=== PATIENT | female | born 1980 | race Caucasian/White ===

== ENCOUNTER 2019-02-20 19:15 | Observation (INO) | payer OTHER ==
[2019-02-20] MEDS ORDERED: LR 1,000 ML IV ONE ×2 (19:30→20:31)
[2019-02-20 20:15] LABS: PLATELET COUNT 228 10^3/uL (150-400)
[2019-02-20] MEDS ORDERED: ZOLPIDEM TARTRATE 5 MG TAB PO PRN (22:20)
[2019-02-20] MEDS ORDERED: ONDANSETRON DISINTEGRATING 4 MG TAB PO PRN (22:20)
--- NOTE | 2019-02-21 00:55 | GHP ---
[f rep st] PREOP HISTORY AND PHYSICAL DATE OF ADMISSION: 02/20/2019 ADMISSION DIAGNOSIS: Intrauterine at 38 and 5/7 weeks gestation, false labor, history of g enital herpes. HISTORY OF PRESENT ILLNESS: The patient is a 38-year-old, 1, para 0, who is 38 and 5/7 weeks gestation. She has a history of type 2 genital herpes and is scheduled for a primary elective sharon rakan section on Wednesday due to the history and desire to avoid any potential risk of baby contractin g herpes. Patient has a history of an outbreak a month ago and she has been treated on prop hylactic Valtrex since then. The patient has questionable prodromal symptoms today and began having contractions and came in for evaluation. A cervical exam on arrival, her cervix was long and closed. She was re-examined several hours later and no change in her cervix was noted. She was given IV fl uids and had contractions which palpated mildly. I did extensive pelvic exams of the area that patie nt normally has lesions and no abnormal tissue or lesions were noted. Management options were review ed with the patient. Including continued in-house observation and morphine sleep, and if she progres sed into labor, then proceeding immediately with section versus going home. The patient and her considered all the options and decided that they wanted to go stay in a hotel nearby and have a script for Jong. The patient was discharged to home with labor precautions and kick counts. The patient had a category 1 tracing. Infant in the vertex presentation. Patient was having regular contractions on the monitor, which were mild. status was reassuring. Labor pre cautions were reviewed. If the patient returns in labor, we will proceed with a section. /[id number]/MODL
== END 2019-02-20 22:45 | disposition home or self-care (01) ==
LOC: FLD 19:15
PROVIDERS: ADMIT Obstetrics & Gynecology; ATTEND Obstetrics & Gynecology
DX: O47.1 False labor at or after 37 completed weeks of gestation (principal); O98.313 Other infections with a predominantly sexual mode of transmission complicating pregnancy, third trimester; A60.09 Herpesviral infection of other urogenital tract; Z3A.38 38 weeks gestation of pregnancy
CPT/HCPCS: 59025; G0378

== ENCOUNTER 2019-02-22 05:36 | Inpatient (IN) | payer OTHER ==
--- NOTE | 2019-02-16 19:54 | GHP ---
[f rep st] HISTORY AND PHYSICAL DATE OF ADMISSION: 02/22/2019 DATE OF PROCEDURE: 02/22/2019. ADMITTING DIAGNOSES: 1. Intrauterine at 39 weeks. 2. Elective primary . HISTORY OF PRESENT ILLNESS: The patient is a 37-year-old, 1, para 0, at 39 weeks with an estimated due date 03/01/2019 by last menstrual period, 05/25/2018, and consistent with ultrasound at 8 weeks. The patient presents to Labor and Delivery for an elective primary secondary to concern about cephalopelvic disproportion. She states that her mother had cephalopelvic disproportion and needed a . The patient did not disclose early in that she has a history of HSV-2 and genital lesions and her is not aware of this; she is also concerned that there will be issues with the baby coming through the canal, even though she is on prophylactic Valtrex , and desires an elective at this time. The patient states there is good movement. The patient denies any leakage of fluid, vaginal bleeding or any contractions at this time. The patient has good care at [facility] and was a transfer of care at 14 weeks. is complicated by advanced maternal age with negative NIPT and a normal level II ultrasound at 20 weeks with an estimated weight in 14th percentile. Most recent growth at 36 weeks revealed an estimated weight 49% with normal ATA at 13 cm. The patient failed 1-hour Glucola, but passed 3-hour Glucola. The patient received Tdap. GBS culture is negative. PAST OB HISTORY: The patient is a primipara. 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 Cycles are monthly and she bleeds for 2 days. She had a Mirena IUD, which was removed March 2018. LMP was 05/25/2018. Positive test 06/23/2018. The patient does not have a history of abnormal Pap smears. She has a history of HSV-2 but denies exposure to any other STDs. CURRENT MEDICATIONS: Include vitamins, folic acid, Valtrex. ALLERGIES: No known drug allergies. PAST MEDICAL HISTORY: Advanced maternal age. 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 PAST SURGICAL HISTORY: Egg retrieval in 2011; wisdom teeth extraction; and cystectomy on forehead. FAMILY HISTORY: Maternal grandmother/maternal aunt, obesity. Mother, diverticulitis. SOCIAL HISTORY: Patient is and lives with her . 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 The patient denies any current alcohol use, but admits to marijuana use bimonthly and discontinued June 2018, and denies any tobacco use. REVIEW OF SYSTEMS: 10-point review of systems is negative. Pertinent positives noted in HPI. LABS: First trimester H and H, 14.6 and 45.1, platelets 257. Blood type B positive. Antibody negative. RPR reactive. Rubella immune. Hepatitis B surface antigen negative. HIV negative. Trio screen and standard panel negative. Urine drug screen, UA and urine culture all negative. Gonorrhea/ chlamydia cultures negative. Pap smear negative per patient. Single AFP negative. Innatal screen negative. Third trimester H and H, 12.4 and 37.2. One-hour Glucola 135; 3-hour Glucola 66, 135, 144, 140. GBS culture is negative. Varicella immune. PHYSICAL EXAMINATION: VITAL SIGNS: On admission, vital signs are stable. Patient is afebrile. GENERAL: Well-nourished well-developed female. Alert and oriented x3, in no apparent distress. SKIN: Warm, dry without rashes. NEURO: Grossly intact. CARDIOVASCULAR: Regular rate and rhythm. LUNGS: Clear to auscultation bilaterally. ABDOMEN: Gravid, soft, nontender. PELVIC: Exam is deferred. EXTREMITIES: Normal to inspection without calf tenderness or edema. ASSESSMENT/PLAN: Patient is a 37-year-old 1, para 0, at 39 weeks who presents for an elective primary secondary to concern for cephalopelvic disproportion, and HSV-2 and transmission to baby. 1. Admit to Labor and Delivery. 2. Discussed risks of the procedure, including but not limited to bleeding, infection, and damage to surrounding organs. The patient understands all risks at this time and wants to proceed with elective primary . 3. Surgical consents were obtained and the patient was properly consented. 4. Antibiotics senior environmental scientist to operating room. 5. Sequential compression devices for deep venous thrombosis prophylaxis. 6. Patient is to bring in her cord blood banking kit. /[id number]/MODL MTDD
[2019-02-22] MEDS ORDERED: CITRIC ACID/SODIUM CITRATE 30 ML UDCUP PO ONE (05:44)
[2019-02-22] MEDS ORDERED: LR 1,000 ML IV SCH (05:44)
[2019-02-22] MEDS ORDERED: ceFAZolin 2 GM/DEXTROSE 100 ML IV ONE (05:44)
[2019-02-22] MEDS ORDERED: LR 500 ML IV ONE (05:44)
--- NOTE | 2019-02-22 07:05 | PREANESOB ---
Obstetric Pre-Anesthesia Info - General Info Proposed Procedure: primary c/s for possible herpes outbreak : 1 Para: 0 NANCY: 02/23/19 Gestational Age: 39 week(s) and 6 day(s) - Info Status: Full Term Monitors: External FHR Pattern: Reassuring - Labor Status PIH: No Magnesium Sulfate in Use: No Section History: Primary Indications for Current Section: Herpes Labor Epidural: No Anesthesia Allergies/Adverse Reactions: Allergy/AdvReac Type Severity Reaction Status Date / Time No Known Allergies Allergy Unverified 02/16/19 18:56 Home Medications: Medication Instructions Recorded Fish Oil 1,000 mg Softgel 1 cap PO DAILY 02/22/19 1 tab PO DAILY 02/22/19 Probiotic 1 cap PO DAILY 02/22/19 Valtrex (*) 1 tab PO DAILY 02/22/19 Vitamin D3 1 cap PO DAILY 02/22/19 Visit Medications: Generic Name Dose Route Start Last Admin Trade Name Freq PRN Reason Stop Dose Admin Lactated Ringer's 1,000 mls @ 125 mls/hr 02/22/19 05:44 02/22/19 06:34 Lr IV 02/23/19 05:43 1,000 mls CONT HAYDEE Administration Discontinued Medications Generic Name Dose Route Start Last Admin Trade Name Freq PRN Reason Stop Dose Admin Citric Acid/Sodium Citrate 30 ml 02/22/19 05:44 Bicitra PO 02/22/19 05:45 ONCALL ONE Cefazolin Sodium/Dextrose 100 mls @ 200 mls/hr 02/22/19 05:44 Ancef IV 02/22/19 06:13 ONCALL ONE Protocol Lactated Ringer's 500 mls @ 0 mls/hr 02/22/19 05:44 Lr IV 02/22/19 05:45 ONCE ONE As Directed - Vital Signs Latest Vital Signs (Nursing): Temp Pulse Resp BP Pulse Ox 36.8 C 98 22 H 115/84 H 95 02/22/19 06:11 02/22/19 06:11 02/22/19 06:11 02/22/19 06:11 02/22/19 06:11 Height/Weight (Nursing): Height 157.48 cm Weight 74.389 kg - Focused Exam Neck exam: FROM Mallampati Score: Class 2 Mouth exam: normal dental/mouth exam Pulmonary: no respiratory distress, clear to auscultation Cardiovascular: regular rate and rhythym, no murmur, rub, or gallop - Plan Consent Signed and on Chart: Yes Patient/Guardian Understands and Agrees to Plan: Yes
[2019-02-22] MEDS ORDERED: BUPIVACAINE/DEXTROSE 7.5MG/ML 2 ML SPINAL AMP SP ONE (07:09)
[2019-02-22] MEDS ORDERED: ONDANSETRON 4 MG/2 ML VIAL ONE (07:09)
[2019-02-22] MEDS ORDERED: morphINE PF 5 MG/10 ML INJ ONE (07:09)
[2019-02-22 07:10] LABS: PLATELET COUNT 244 10^3/uL (150-400)
--- NOTE | 2019-02-22 07:18 | PDHPUP ---
History & Physical Update H&P update statement: This history and physical update is based on an assessment of the patient which was completed after admission or registration (within 24 hours), but prior to the surgery/procedure. Pt desires elective c/s at this time to avoid any potential risk of herpes. Pt was seen on L&D 2 days ago in false labor and noticed questionable prodromal symptoms. Pt was taking Valtrex. H&P update: H&P reviewed & patient examined, no change in patient's condition since H&P completed
[2019-02-22] MEDS ORDERED: OXYTOCIN 100 UNITS/10 ML VIAL ONE (07:46)
[2019-02-22] MEDS ORDERED: PHENYLEPHRINE HCL 100 MCG/ML SYR IVP PRN (08:05)
[2019-02-22] MEDS ORDERED: fentaNYL 100 MCG/2 ML INJ IVP PRN (08:05)
[2019-02-22] MEDS ORDERED: HYDROCODONE/APAP 5/325 TAB PO PRN (08:05)
[2019-02-22] MEDS ORDERED: OXYCODONE/APAP 5/325 TAB PO PRN (08:05)
--- NOTE | 2019-02-22 08:06 | POSTANESTH ---
Post Anesthetic Evaluation Cardiovascular Status: Normal, Stable Respiratory Status: Normal, Stable Level of Consciousness/Mental Status: Can Participate in Eval Pain Control: Adequate, Prn Tx Ordered Nausea/Vomiting Control: Adequate, Prn Tx Ordered Complications Possibly Related to Anesthesia: None Noted
[2019-02-22] MEDS ORDERED: PROMETHAZINE HCL 25 MG/ML INJ IVP PRN (08:55)
[2019-02-22] MEDS ORDERED: POLYETHYLENE GLYCOL 3350 17 GM PKT PO PRN (08:55)
[2019-02-22] MEDS ORDERED: MAGNESIUM HYDROXIDE 30 ML UDCUP PO PRN (08:55)
[2019-02-22] MEDS ORDERED: LACTULOSE 20 GM/30 ML UDCUP PO PRN (08:55)
[2019-02-22] MEDS ORDERED: SIMETHICONE 80 MG TAB CHEW PO PRN (08:55)
[2019-02-22] MEDS ORDERED: BISACODYL 10 MG SUPP PR PRN (08:55)
[2019-02-22] MEDS ORDERED: oxyCODONE IR 5 MG TAB PO PRN (08:57)
--- NOTE | 2019-02-22 08:59 | OBDEL ---
Info Type: Primary Presentation at Delivery: Vertex (Direct OA) L&D Analgesia/Anesthesia Type: Spinal GBS+: No Intrapartum Medications: Generic Name Dose Route Start Last Admin Trade Name Freq PRN Reason Stop Dose Admin Lactated Ringer's 1,000 mls @ 125 mls/hr 02/22/19 05:44 02/22/19 06:34 Lr IV 02/23/19 05:43 1,000 mls CONT HAYDEE Administration Discontinued Medications Generic Name Dose Route Start Last Admin Trade Name Freq PRN Reason Stop Dose Admin Citric Acid/Sodium Citrate 30 ml 02/22/19 05:44 02/22/19 07:04 Bicitra PO 02/22/19 05:45 30 ml ONCALL ONE Administration Cefazolin Sodium/Dextrose 100 mls @ 200 mls/hr 02/22/19 05:44 02/22/19 07:05 Ancef IV 02/22/19 06:13 100 mls ONCALL ONE Administration Protocol - Care Provider Brick Machine Operator/SERVER SECURITY ADMINISTRATOR: Ramona Rizzo Indications for Delivery: Elective (h/o HSV-2, concern for transmission of herpes; concern for CPD) Operative Report - Delivery Pre-op Diagnoses: IUP @ 39 weeks for elective c/s secondary to concern for transmission of herpes; pt with h/o HSV2 with outbreak at 36 weeks on Valtrex with prodromal symptoms 48 hours ago; concern for CPD Post-op Diagnoses: IUP @ 39 weeks for elective c/s secondary to concern for transmission of herpes; pt with h/o HSV2 with outbreak at 36 weeks on Valtrex with prodromal symptoms 48 hours ago; concern for CPD; narrow pubic arch noted when delivering head History of Prior Section: No Number of Prior Sections: 0 Nulliparous Prior to Delivery: Yes Indications for Current Section: Elective/Repeat, Herpes (concern for transmission of herpes; pt with prodromal symptoms) Procedure: Scheduled, Low Transverse Surgeon: Mary Anne Wood Hydraulic Miner: Ericka Jain Anesthesiologist: Shanti Merino Complications: None Findings: A viable female born in direct OA position at 0756 with 9 and 9 Apgars weighing 7lb 6oz. Some difficulty in delivering head secondary to narrow pubic arch. Delayed cord clamping x 30 sec. Cord clamped x 2, cut and to waiting SERVER SECURITY ADMINISTRATOR. Cord blood collection was completed per instructions and a segment of cord was collected. Cord bloods then obtained. Placenta delivered spontaneously intact with 3-vc. Grossly normal appearing uterus, tubes and ovaries. Pt sathya well. No complications. Specimen(s)/Path: Other (Specify) (none) IV Fluid (ml): 1,200 EBL: 600cc UO: 100 cc clear fluid at end [place] Data NANCY: 03/01/19 Gestational Age: 39 week(s) and 0 day(s) Morales Delivery Date: 02/22/19 Delivery Time: 07:56 Sex of : Female [place] Weight (gm): 3336 g Score (1 Min): 9 Score (5 Min): 9 ICD10 Worksheet Patient Problems: Problems Problem Status Onset CPD (cephalo-pelvic disproportion) Acute Delivery by elective section Acute History of herpes simplex type 2 infection Acute - ICD10 Problem Qualifiers (1) Delivery by elective section (2) History of herpes simplex type 2 infection (3) CPD (cephalo-pelvic disproportion) Qualifiers: Fetus number: single or unspecified fetus
[2019-02-22] MEDS: KETOROLAC 30 MG/1 ML SDV IVP SCH ×2 (12:22→18:26)
[2019-02-22] MEDS: ACETAMINOPHEN 325 MG TAB PO SCH ×2 (13:36→20:05)
[2019-02-22] MEDS: IBUPROFEN 600 MG TAB PO SCH ×2 (14:54→16:51)
[2019-02-22] MEDS: SENNOSIDES/DOCUSATE SODIUM TAB PO SCH ×2 (14:57→20:06)
[2019-02-22] MEDS ORDERED: diphenhydrAMINE 25 MG CAP PO PRN (16:28)
--- NOTE | 2019-02-22 18:26 | OBPP ---
Progress Note Assessment/Plan: Assessment: 38 y/o G1 now P1 s/p elective PCS at 39 weeks POD # 0 - pt is stable Plan: Continue routine post-op care Pain well controlled, cont meds as ordered Encourage IS Good UO, amos in place Cont SCDs while in bed HCT pending in am 02/23 support prn 02/22/19 18:26 Subjective/ Course: 02/22/19 18:27 Pt seen and examined. Doing well with no complaints. Pain is well controlled at this time. Pt has been in a chair for 1 hour. Brad regular diet, amos in place, no flatus yet. Minimal bleeding noted. Denies any f/c/n/v/CP or SOB. BF going well so far. NO calf tenderness. Objective: 02/22/19 06:25 Patient ABO/Rh B POSITIVE 02/22/19 06:25 Temp Pulse Resp BP Pulse Ox 36.2 C 99 16 106/65 93 02/22/19 14:00 02/22/19 14:00 02/22/19 16:00 02/22/19 14:00 02/22/19 16:00 Uterine Position/Fundal Height: Umbilicus -1 Uterine Tone: Firm Physical Exam - Physical Exam General Appearance: WD/WN, alert, no apparent distress Respiratory: lungs clear, normal breath sounds Cardiac/Chest: regular rate, rhythm Abdomen: normal bowel sounds, non-tender, soft, incision (C/D/I with dressing in place), dressing (C/D/I with no shadowing) Extremities: non-tender, normal inspection (with SCDs) Skin: normal color, warm/dry Neuro/Psych: alert, normal mood/affect, oriented x 3
[2019-02-23] MEDS: KETOROLAC 30 MG/1 ML SDV IVP SCH ×2 (00:31→06:31)
[2019-02-23] MEDS: ACETAMINOPHEN 325 MG TAB PO SCH ×5 (03:46→22:53)
[2019-02-23] MEDS: IBUPROFEN 600 MG TAB PO SCH ×5 (04:14→20:49)
[2019-02-23] MEDS: SENNOSIDES/DOCUSATE SODIUM TAB PO SCH ×2 (10:30→19:26)
--- NOTE | 2019-02-23 11:31 | OBPP ---
Progress Note Assessment/Plan: Assessment: POD1 s/p elective PLTCS for HSV2 with questionable outbreak. - Routine cares. - Would like to stay until Wednesday. - Rh pos, Rubella immune. Selected Entries 02/22/19 05:47 Rubella Immune Yes Laboratory Tests 02/22/19 06:25 Patient ABO/Rh B POSITIVE Subjective/ Course: Lindsay is doing great - no new issues overnight. Up and ambulating, took bandage off this AM. Tolerating diet. Says her pain is a zero - no narcotics. Objective: 02/23/19 03:50 Patient ABO/Rh B POSITIVE 02/22/19 06:25 Temp Pulse Resp BP Pulse Ox 36.3 C 69 16 104/69 94 02/23/19 04:00 02/23/19 04:00 02/23/19 04:00 02/23/19 04:00 02/23/19 04:00 Uterine Position/Fundal Height: At Umbilicus Uterine Tone: Firm Physical Exam - Physical Exam Abdomen: incision (CDI, no s/sx of infx)
--- NOTE | 2019-02-23 11:56 | PDPAINCON ---
Pain Management Consultation Patient referred by : [place] - Subjective Pain is: under control Side effects include: No nausea/vomiting Activity: able to ambulate - Objective Technique: spinal opioid Sensory and motor exam: consistent with block Vital signs: stable - Assessment/Plan Assessment/Plan: pain well-controlled, continue current mgmt (POD 1 s/p C/S with IT morphine. No complaints, doing well.)
[2019-02-24] MEDS: IBUPROFEN 600 MG TAB PO SCH ×6 (01:40→19:57)
[2019-02-24] MEDS: ACETAMINOPHEN 325 MG TAB PO SCH ×3 (06:13→18:22)
[2019-02-24] MEDS: SENNOSIDES/DOCUSATE SODIUM TAB PO SCH ×2 (07:34→19:58)
[2019-02-24] MEDS: oxyCODONE IR 5 MG TAB PO PRN (19:58)
--- NOTE | 2019-02-24 21:02 | OBPP ---
Progress Note Assessment/Plan: Assessment: LATE NOTE - PT SEEN APPROX 16:15 POD 2 s/p primary c/s HSV II Plan: routine care 02/24/19 20:58 Subjective/ Course: Lindsay is doing great - no new issues overnight. Up and ambulating, took bandage off this AM. Tolerating diet. Says her pain is a zero - no narcotics. 02/24/19 21:00 Pt has had good day. Baby is latching well - sore nipples but using APNO cream. bld is very light. urinating fine. Getting up and walking - pain controlled with ibu/tyl mainly but just took Oxy approx 1-2 hrs ago. Objective: 02/23/19 03:50 Patient ABO/Rh B POSITIVE 02/22/19 06:25 Temp Pulse Resp BP Pulse Ox 36.1 C 72 16 105/71 94 02/24/19 19:41 02/24/19 19:41 02/24/19 19:41 02/24/19 19:41 02/24/19 19:41 Uterine Position/Fundal Height: Umbilicus -1 Uterine Tone: Firm Physical Exam - Physical Exam Abdomen: non-tender (approp post op tenderness), soft, incision (CDI) Extremities: non-tender, pedal edema (minimal) Skin: normal color, warm/dry Neuro/Psych: alert, normal mood/affect
[2019-02-25] MEDS: oxyCODONE IR 5 MG TAB PO PRN (00:35)
[2019-02-25] MEDS: ACETAMINOPHEN 325 MG TAB PO SCH ×4 (00:36→21:04)
[2019-02-25] MEDS: IBUPROFEN 600 MG TAB PO SCH ×4 (04:40→23:10)
[2019-02-25] MEDS: SENNOSIDES/DOCUSATE SODIUM TAB PO SCH ×2 (10:11→23:20)
--- NOTE | 2019-02-25 11:17 | OBPP ---
Progress Note Assessment/Plan: Assessment: 38 y/o POD #3 s/p LTCS doing well. Plan: I will write Rx for Oxycodone and Ibuprofen today to facilitate d/c tomorrow. support and routine POC. Pt has post op instructions and appointments set up. 02/25/19 11:16 Subjective/ Course: Lindsay is doing great - no new issues overnight. Up and ambulating, took bandage off this AM. Tolerating diet. Says her pain is a zero - no narcotics. 02/24/19 21:00 Pt has had good day. Baby is latching well - sore nipples but using APNO cream. bld is very light. urinating fine. Getting up and walking - pain controlled with ibu/tyl mainly but just took Oxy approx 1-2 hrs ago. 02/25/19 11:13 Pt is doing well today. She has good pain controll with Ibuprofen, Tylenol and Oxycodone. She is ambulating and voiding and had BM yesterday. Breast feeding is going better and her nipples are better with APNO cream. They wish to stay today but be discharged early tomorrow am. Objective: 02/23/19 03:50 Patient ABO/Rh B POSITIVE 02/22/19 06:25 Temp Pulse Resp BP Pulse Ox 36.6 C 68 16 111/76 96 02/25/19 07:59 02/25/19 07:59 02/25/19 07:59 02/25/19 07:59 02/25/19 07:59 Uterine Position/Fundal Height: Umbilicus -2 Uterine Tone: Firm Physical Exam - Physical Exam General Appearance: WD/WN, alert, no apparent distress Neck: non-tender, full range of motion, supple Respiratory: chest non-tender, lungs clear, normal breath sounds Cardiac/Chest: regular rate, rhythm Abdomen: normal bowel sounds, incision (c/d/i) Extremities: swelling (tr), Simón's sign (neg)
[2019-02-25] MEDS ORDERED: DOCUSATE SODIUM 100 MG CAP PO PRN (20:55)
[2019-02-26] MEDS: ACETAMINOPHEN 325 MG TAB PO SCH ×2 (02:36→08:44)
[2019-02-26] MEDS: oxyCODONE IR 5 MG TAB PO PRN ×2 (04:05→12:28)
[2019-02-26] MEDS: IBUPROFEN 600 MG TAB PO SCH ×2 (04:59→11:43)
[2019-02-26 09:34] VITALS: BP 116/83
--- NOTE | 2019-02-26 12:58 | OBPP ---
Progress Note Assessment/Plan: Assessment: POD 4 s/p primary c/s HSV II Plan: routine care, d/c home 02/24/19 20:58 02/26/19 12:54 Subjective/ Course: Lindsay is doing great - no new issues overnight. Up and ambulating, took bandage off this AM. Tolerating diet. Says her pain is a zero - no narcotics. 02/24/19 21:00 Pt has had good day. Baby is latching well - sore nipples but using APNO cream. bld is very light. urinating fine. Getting up and walking - pain controlled with ibu/tyl mainly but just took Oxy approx 1-2 hrs ago. 02/25/19 11:13 Pt is doing well today. She has good pain controll with Ibuprofen, Tylenol and Oxycodone. She is ambulating and voiding and had BM yesterday. Breast feeding is going better and her nipples are better with APNO cream. They wish to stay today but be discharged early tomorrow am. 02/26/19 12:55 Pt doing very well. Worked on pumping a bit before baby latches and that's been very helpful. milk in well. reg diet. urinating fine. bld is very light. Pain well controlled with ibu/tyl - occas oxy. Ready for d/c 02/26/19 12:56 Objective: 02/23/19 03:50 Patient ABO/Rh B POSITIVE 02/22/19 06:25 Temp Pulse Resp BP Pulse Ox 36.4 C 88 18 116/83 H 96 02/26/19 08:30 02/26/19 08:30 02/26/19 08:30 02/26/19 08:30 02/26/19 08:30 Uterine Position/Fundal Height: Umbilicus -1 Uterine Tone: Firm Physical Exam - Physical Exam Abdomen: non-tender (minimal tenderness), soft, incision (CDI - looks great) Extremities: non-tender, pedal edema (minimal) Skin: normal color, warm/dry Neuro/Psych: alert, normal mood/affect
--- NOTE | 2019-02-26 13:01 | OBGCSDC ---
General Delivery Information - General Info : 1 Para: 1 Abortions: 0 Type: Primary L&D Analgesia/Anesthesia Type: Spinal Admission Date: 02/22/19 Labs: Patient ABO/Rh B POSITIVE 02/22/19 06:25 Hct 37.3 % (38.0-47.0) L 02/23/19 03:50 - Hospital Course : Lindsay is doing great - no new issues overnight. Up and ambulating, took bandage off this AM. Tolerating diet. Says her pain is a zero - no narcotics. 02/24/19 21:00 Pt has had good day. Baby is latching well - sore nipples but using APNO cream. bld is very light. urinating fine. Getting up and walking - pain controlled with ibu/tyl mainly but just took Oxy approx 1-2 hrs ago. 02/25/19 11:13 Pt is doing well today. She has good pain controll with Ibuprofen, Tylenol and Oxycodone. She is ambulating and voiding and had BM yesterday. Breast feeding is going better and her nipples are better with APNO cream. They wish to stay today but be discharged early tomorrow am. 02/26/19 12:55 Pt doing very well. Worked on pumping a bit before baby latches and that's been very helpful. milk in well. reg diet. urinating fine. bld is very light. Pain well controlled with ibu/tyl - occas oxy. Ready for d/c 02/26/19 12:56 - Delivery Providers Surgeon: Mary Anne Wood [employer] Supervisor: Ericka Jain Anesthesiologist: Shanti Merino - Delivery Number of Prior Sections: 0 Indications for Current Section: Elective/Repeat (not repeat -- PRIMARY ), Herpes (concern for transmission of herpes; pt with prodromal symptoms) Surgical Procedures: Scheduled, Low Transverse Intra-op Complications: None EBL: 600cc UO: 100 cc clear fluid at end [place] Data NANCY: 03/01/19 Gestational Age: 39 week(s) and 4 day(s) Morales Delivery Date: 02/22/19 Delivery Time: 07:56 Sex of Infant: Female [place] Weight (gm): 3336 g Score (1 Min): 9 Score (5 Min): 9 Discharge Information - Discharge Information Prescriptions: oxyCODONE IR [Oxycodone Ir (*)] 5 - 10 mg PO Q4HRS PRN #30 tab PRN Reason: Pain, Severe Able To Take Po Ibuprofen [Motrin (*)] 600 mg PO Q6H #30 tab Condition: Good Instruction/Follow Up: See Instruction Sheet, Two Weeks (with AR), Four Weeks ( with therapist), Six Weeks (with AR)
== END 2019-02-26 13:45 | disposition home or self-care (01) | DRG 788 ==
LOC: FLD 05:36 → EEVIPCON 07:30 → FOB 10:30
PROVIDERS: ADMIT Obstetrics & Gynecology; ATTEND Obstetrics & Gynecology
PROC: 10D00Z1 Extraction of Products of Conception, Low, Open Approach (ICD-10-PCS; principal; 2019-02-22)
DX: O98.52 Other viral diseases complicating childbirth (principal); B00.9 Herpesviral infection, unspecified; Z37.0 Single live birth; Z3A.39 39 weeks gestation of pregnancy; O33.9 Maternal care for disproportion, unspecified
CPT/HCPCS: J0690; J1885; J2274; J2405; J2590